=== PATIENT | male | born 1975 | race African-American/Black ===

== ENCOUNTER 2022-09-21 18:02 | Inpatient (IN) | payer SELFPAY ==
[2022-09-21 20:09] LABS: Anion Gap 27 mmol/L (10-20); BUN (Urea Nitrogen) 42 mg/dL (8.9-20.6); Calc. Creatinine Clearance 0 mL/min (70-130); Calcium 9.9 mg/dL (7.8-10.44); Carbon Dioxide 16 mmol/L (22-29); Chloride 100 mmol/L (98-107); Estimated GFR 9; Glucose 153 mg/dL (70-105); Potassium 4.5 mmol/L (3.5-5.1); Sodium 138 mmol/L (136-145)
[2022-09-21 21:12] LABS: Actual Bicarbonate (HCO3v) 22.3 mEq/L (22-28); Base Excess -4.4 mEq/L (-2 - +2); Calcium, Ionized (venous) 1.09 mmol/L (1.16-1.32); Chloride (VBG) 101 mmol/L (98-106); Hematocrit-VBG 44 % (42.0-52.0); Hemoglobin (Hb) 15.1 g/dL (13.1-17.2); Puncture Site Other Site; RapidComm Collect By CBL; Sodium 138.3 mmol/L (133-146); pH (venous) 7.293 (7.32-7.43)
[2022-09-21 21:39] LABS: Lactic Acid 5.3 mmol/L (0.5-2.2)
[2022-09-21] MEDS ORDERED: levETIRAcetam in NS 1,000 MG in Premix Bag 1 BAG IVPB SCH (22:41)
[2022-09-21] MEDS ORDERED: Ampicillin/Sulbactam 3 GM in Sodium Chloride 0.9% 100 ML IVPB SCH (23:00)
[2022-09-21 23:06] LABS: Magnesium 2.4 mg/dL (1.6-2.6); Phosphorus 4.9 mg/dL (2.3-4.7)
[2022-09-21 23:16] LABS: CK (CPK) 4389 U/L (30-200)
[2022-09-21] MEDS ORDERED: Sodium Chloride 0.9% 1,000 ML IV SCH (23:30)
[2022-09-21 23:33] VITALS: BMI 27.5
[2022-09-21] MEDS: Nicotine 14 MG PATCH TD SCH (23:52)
[2022-09-21] MEDS: levETIRAcetam 500 MG/5 ML VIAL SLOW IVP SCH (23:52)
[2022-09-22 01:06] LABS: Creatinine, Urine 259.42 mg/dL (63-166)
[2022-09-22] MEDS ORDERED: Baclofen 10 MG TAB PO SCH (01:15)
[2022-09-22] MEDS ORDERED: Sodium Chloride 0.9% 1,000 ML IV SCH (01:30)
[2022-09-22] MEDS: Sodium Chloride 0.9% 1,000 ML IV SCH ×2 (01:56→01:57)
[2022-09-22] MEDS ORDERED: Aspirin 325 mg Enteric Coated Tablet PO SCH (02:45)
[2022-09-22 02:50] LABS: Bilirubin Neg (Negative); Blood, Urine 250 (Negative); Clarity Slightly Cloudy (Clear); Glucose, Urine (Dipstick) Normal (Negative); Ketone, Urine Negative (Negative); Leukocyte Negative (Negative); Nitrite Negative (Negative); Protein, Urine (Dipstick) 30 mg/dl (Neg-Trace); Specific Gravity, Urine 1.025 (1.005-1.030); Urobilinogen Normal mg/dL (Less than 2)
[2022-09-22 02:57] LABS: Amphetamine Not Detected (NotDetected); Barbiturates Screen Not Detected (NotDetected); Benzodiazepine Screen Detected (NotDetected); Cocaine Metabolite Screen Not Detected (NotDetected); Methadone Not Detected (NotDetected); Methamphetamine Not Detected (NotDetected); Opiate Screen Not Detected (NotDetected); Oxycodone Screen Not Detected (NotDetected); Phencyclidine (PCP) Not Detected (NotDetected); THC/Cannabinoid Screen Detected (NotDetected); Tricyclic Screen Not Detected (NotDetected)
[2022-09-22 03:00] LABS: Bacteria/HPF Rare-Few HPF (None Seen); CAUTI Indications for Culture Alt mental st,lethar; Squamous Epithelial None Seen HPF (0-3); WBC/HPF 0-3 HPF (0-3)
[2022-09-22] MEDS ORDERED: Cefepime 1 GM in Sodium Chloride 0.9% 100 ML IVPB SCH (03:00)
[2022-09-22 03:01] LABS: Urine Culture Reflex No No
[2022-09-22 03:10] LABS: %Basophils 0.2 % (0.0-2.0); %Eosinophils 0.1 % (0.0-6.0); %Lymphocytes 16.1 % (18.0-47.0); %Monocytes 10.1 % (0.0-10.0); %Neutrophils 73.3 % (40.0-75.0); Hematocrit 36.9 % (38.8-50.0); Mean Corpuscular HGB CONC 35.2 g/dL (32.0-36.0); Mean Corpuscular Hemoglobin 29.2 pg (27.0-33.0); Mean Corpuscular Volume 82.9 fl (81.2-95.1); Mean Platelet Volume 10.9 fl (7.4-10.4); Platelet Count 198 10x3/uL (150-450); RBC Distribution Width 13.5 % (11.5-14.5); Red Blood Cell (RBC) Count 4.45 10x6/uL (4.32-5.72); White Blood Cell (WBC) Count 9.5 10x3/uL (3.5-10.5)
[2022-09-22 03:25] LABS: Phosphorus 4.9 mg/dL (2.3-4.7)
[2022-09-22] MEDS ORDERED: traMADol HCl 50 MG TAB PO SCH (03:45)
[2022-09-22 03:52] LABS: ALT (SGPT) 40 U/L (8-55); AST (SGOT) 140 U/L (5-34); Albumin 3.7 g/dL (3.5-5.0); Alkaline Phosphatase 63 U/L (40-110); Anion Gap 18 mmol/L (10-20); BUN (Urea Nitrogen) 39 mg/dL (8.9-20.6); Bilirubin, Total 0.4 mg/dL (0.2-1.2); Calc. Creatinine Clearance 20 mL/min (70-130); Calcium 8.2 mg/dL (7.8-10.44); Carbon Dioxide 19 mmol/L (22-29); Chloride 105 mmol/L (98-107); Estimated GFR 13; Globulin 2.5 g/dL (2.4-3.5); Glucose 130 mg/dL (70-105); Potassium 3.7 mmol/L (3.5-5.1); Protein, Total 6.2 g/dL (6.0-8.3); Sodium 138 mmol/L (136-145)
[2022-09-22 03:59] LABS: CK (CPK) 8845 U/L (30-200)
[2022-09-22] MEDS ORDERED: Gabapentin 100 MG CAP PO SCH (04:00)
[2022-09-22] MEDS ORDERED: Lactated Ringer's 1,000 ML IV SCH (04:30)
[2022-09-22] MEDS: Lactated Ringer's 1,000 ML IV SCH ×4 (05:46→20:53)
[2022-09-22] MEDS ORDERED: metroNIDAZOLE 500 MG in Premix Bag 1 BAG IVPB SCH (06:00)
[2022-09-22] MEDS: Pantoprazole 40 MG VIAL IVP SCH (09:31)
[2022-09-22] MEDS: Ondansetron PF 4 MG/2 ML Vial IVP PRN ×2 (09:34→18:33)
[2022-09-22] MEDS: Heparin 5,000 UNITS/ML VIAL SC SCH ×3 (09:35→20:48)
[2022-09-22] MEDS ORDERED: Amlodipine 5 MG TAB PO SCH (11:30)
[2022-09-22] MEDS ORDERED: hydrALAZINE 20 MG/ML VIAL SLOW IVP PRN (11:35)
[2022-09-22] MEDS ORDERED: Carvedilol 6.25 MG TAB PO SCH (11:45)
[2022-09-22] MEDS: levETIRAcetam 500 MG/5 ML VIAL SLOW IVP SCH (12:25)
[2022-09-22] MEDS: Carvedilol 6.25 MG TAB PO SCH (16:51)
[2022-09-22 18:58] LABS: Anion Gap 14 mmol/L (10-20); BUN (Urea Nitrogen) 23 mg/dL (8.9-20.6); Calc. Creatinine Clearance 43 mL/min (70-130); Calcium 8.8 mg/dL (7.8-10.44); Carbon Dioxide 24 mmol/L (22-29); Chloride 107 mmol/L (98-107); Estimated GFR 32; Glucose 109 mg/dL (70-105); Potassium 4.1 mmol/L (3.5-5.1); Sodium 141 mmol/L (136-145)
[2022-09-22] MEDS: levETIRAcetam 500 MG TAB PO SCH (20:48)
[2022-09-22] MEDS ORDERED: Atorvastatin Calcium 40 MG TAB PO SCH (21:00)
[2022-09-22] MEDS: Nicotine 14 MG PATCH TD SCH (23:10)
[2022-09-23] MEDS: Acetaminophen 500 MG TAB PO PRN ×3 (00:22→23:49)
[2022-09-23] MEDS: Lactated Ringer's 1,000 ML IV SCH ×8 (00:28→21:09)
[2022-09-23] MEDS ORDERED: traMADol HCl 50 MG TAB PO PRN (00:49)
[2022-09-23] MEDS ORDERED: traMADol HCl 50 MG TAB PO SCH ×2 (01:00→23:45)
[2022-09-23] MEDS ORDERED: Gabapentin 100 MG CAP PO SCH (04:15)
[2022-09-23 04:27] LABS: #Monocytes 0.7 10x3/uL (0.0-1.1); #Neutrophils 4.7 10x3/uL (1.5-8.4); %Basophils 0.5 % (0.0-2.0); %Eosinophils 0.3 % (0.0-6.0); %Lymphocytes 18.1 % (18.0-47.0); %Monocytes 10.5 % (0.0-10.0); %Neutrophils 70.4 % (40.0-75.0); Hematocrit 35.7 % (38.8-50.0); Hemoglobin 12.3 g/dL (13.5-17.5); Mean Corpuscular HGB CONC 34.5 g/dL (32.0-36.0); Mean Corpuscular Hemoglobin 28.4 pg (27.0-33.0); Mean Corpuscular Volume 82.4 fl (81.2-95.1); Mean Platelet Volume 11.5 fl (7.4-10.4); Platelet Count 190 10x3/uL (150-450); RBC Distribution Width 13.3 % (11.5-14.5); Red Blood Cell (RBC) Count 4.33 10x6/uL (4.32-5.72); White Blood Cell (WBC) Count 6.6 10x3/uL (3.5-10.5)
[2022-09-23 04:41] LABS: Anion Gap 14 mmol/L (10-20); BUN (Urea Nitrogen) 16 mg/dL (8.9-20.6); Calc. Creatinine Clearance 60 mL/min (70-130); Calcium 8.8 mg/dL (7.8-10.44); Carbon Dioxide 25 mmol/L (22-29); Chloride 103 mmol/L (98-107); Estimated GFR 47; Glucose 98 mg/dL (70-105); Sodium 138 mmol/L (136-145)
[2022-09-23 05:10] LABS: CK (CPK) 18077 U/L (30-200)
[2022-09-23] MEDS ORDERED: Amlodipine 5 MG TAB PO SCH (09:00)
[2022-09-23] MEDS: Aspirin 81 mg Enteric Coated Tablet PO SCH (09:08)
[2022-09-23] MEDS: Carvedilol 6.25 MG TAB PO SCH ×2 (09:08→18:39)
[2022-09-23] MEDS: Gabapentin 100 MG CAP PO SCH (09:09)
[2022-09-23] MEDS: Heparin 5,000 UNITS/ML VIAL SC SCH ×3 (09:09→20:24)
[2022-09-23] MEDS: Pantoprazole 40 MG VIAL IVP SCH (09:09)
[2022-09-23] MEDS: levETIRAcetam 500 MG TAB PO SCH ×2 (09:09→20:24)
[2022-09-23] MEDS: Ondansetron PF 4 MG/2 ML Vial IVP PRN (15:05)
[2022-09-23] MEDS ORDERED: Baclofen 10 MG TAB PO SCH (23:45)
[2022-09-23] MEDS: Nicotine 14 MG PATCH TD SCH (23:46)
[2022-09-24] MEDS ORDERED: hydrALAZINE 20 MG/ML VIAL SLOW IVP SCH ×2 (00:15→01:15)
[2022-09-24] MEDS: Lactated Ringer's 1,000 ML IV SCH ×8 (00:36→23:11)
[2022-09-24] MEDS ORDERED: traMADol HCl 50 MG TAB PO SCH ×2 (01:15)
[2022-09-24] MEDS: Acetaminophen 500 MG TAB PO PRN ×2 (03:54→18:23)
[2022-09-24 04:42] LABS: Anion Gap 15 mmol/L (10-20); BUN (Urea Nitrogen) 10 mg/dL (8.9-20.6); Calc. Creatinine Clearance 86 mL/min (70-130); Calcium 9.4 mg/dL (7.8-10.44); Carbon Dioxide 24 mmol/L (22-29); Chloride 103 mmol/L (98-107); Estimated GFR 73; Glucose 96 mg/dL (70-105); Potassium 4.1 mmol/L (3.5-5.1); Sodium 138 mmol/L (136-145)
[2022-09-24 04:43] LABS: #Eosinphils 0.1 10x3/uL (0.0-0.5); #Monocytes 0.7 10x3/uL (0.0-1.1); #Neutrophils 5.6 10x3/uL (1.5-8.4); %Basophils 0.4 % (0.0-2.0); %Eosinophils 0.7 % (0.0-6.0); %Lymphocytes 21.4 % (18.0-47.0); %Monocytes 8.8 % (0.0-10.0); %Neutrophils 68.6 % (40.0-75.0); Hematocrit 38.6 % (38.8-50.0); Hemoglobin 13.4 g/dL (13.5-17.5); Mean Corpuscular HGB CONC 34.7 g/dL (32.0-36.0); Mean Corpuscular Hemoglobin 28.7 pg (27.0-33.0); Mean Corpuscular Volume 82.7 fl (81.2-95.1); Platelet Count 185 10x3/uL (150-450); RBC Distribution Width 13.2 % (11.5-14.5); Red Blood Cell (RBC) Count 4.67 10x6/uL (4.32-5.72); White Blood Cell (WBC) Count 8.2 10x3/uL (3.5-10.5)
[2022-09-24 05:15] LABS: CK (CPK) 15558 U/L (30-200)
[2022-09-24] MEDS: Gabapentin 100 MG CAP PO SCH (09:08)
[2022-09-24] MEDS: Aspirin 81 mg Enteric Coated Tablet PO SCH (09:08)
[2022-09-24] MEDS: levETIRAcetam 500 MG TAB PO SCH ×2 (09:10→20:46)
[2022-09-24] MEDS: Carvedilol 6.25 MG TAB PO SCH ×2 (09:10→17:13)
[2022-09-24] MEDS: Amlodipine 10 MG TAB PO SCH (09:10)
[2022-09-24] MEDS: Heparin 5,000 UNITS/ML VIAL SC SCH ×3 (09:11→20:46)
[2022-09-24 12:01] LABS: Lactic Acid 1.1 mmol/L (0.5-2.2)
[2022-09-24] MEDS ORDERED: Baclofen 10 MG TAB PO SCH (21:30)
[2022-09-24] MEDS: Nicotine 14 MG PATCH TD SCH (23:11)
[2022-09-25] MEDS ORDERED: traMADol HCl 50 MG TAB PO SCH (01:00)
[2022-09-25] MEDS: Lactated Ringer's 1,000 ML IV SCH ×7 (02:23→21:11)
[2022-09-25] MEDS: Acetaminophen 500 MG TAB PO PRN ×2 (03:43→08:53)
[2022-09-25 04:17] LABS: Anion Gap 15 mmol/L (10-20); BUN (Urea Nitrogen) 9 mg/dL (8.9-20.6); Calc. Creatinine Clearance 84 mL/min (70-130); Calcium 9.5 mg/dL (7.8-10.44); Carbon Dioxide 24 mmol/L (22-29); Chloride 104 mmol/L (98-107); Estimated GFR 71; Glucose 104 mg/dL (70-105); Potassium 4.3 mmol/L (3.5-5.1); Sodium 139 mmol/L (136-145)
[2022-09-25 04:21] LABS: #Eosinphils 0.1 10x3/uL (0.0-0.5); #Monocytes 0.6 10x3/uL (0.0-1.1); #Neutrophils 4.9 10x3/uL (1.5-8.4); %Basophils 0.4 % (0.0-2.0); %Lymphocytes 21.2 % (18.0-47.0); %Monocytes 8.2 % (0.0-10.0); %Neutrophils 69.1 % (40.0-75.0); Hematocrit 36.7 % (38.8-50.0); Hemoglobin 12.5 g/dL (13.5-17.5); Mean Corpuscular HGB CONC 34.1 g/dL (32.0-36.0); Mean Corpuscular Hemoglobin 28.7 pg (27.0-33.0); Mean Corpuscular Volume 84.2 fl (81.2-95.1); Platelet Count 161 10x3/uL (150-450); Red Blood Cell (RBC) Count 4.36 10x6/uL (4.32-5.72); White Blood Cell (WBC) Count 7.1 10x3/uL (3.5-10.5)
[2022-09-25 04:41] LABS: CK (CPK) 11535 U/L (30-200)
[2022-09-25] MEDS: Gabapentin 100 MG CAP PO SCH (08:33)
[2022-09-25] MEDS: Amlodipine 10 MG TAB PO SCH (08:33)
[2022-09-25] MEDS: Heparin 5,000 UNITS/ML VIAL SC SCH ×3 (08:33→21:11)
[2022-09-25] MEDS: Aspirin 81 mg Enteric Coated Tablet PO SCH (08:35)
[2022-09-25] MEDS: levETIRAcetam 500 MG TAB PO SCH ×2 (08:35→21:11)
[2022-09-25] MEDS: Carvedilol 6.25 MG TAB PO SCH (08:44)
[2022-09-25] MEDS ORDERED: HYDROmorphone 0.5 MG/0.5 ML SYRINGE SLOW IVP PRN (08:49)
[2022-09-25] MEDS ORDERED: HYDROmorphone 0.5 MG/0.5 ML SYRINGE SLOW IVP SCH (12:45)
[2022-09-25] MEDS: HYDROcodone/Acetaminophen 5/325 mg Tablet PO PRN (16:50)
[2022-09-25] MEDS: Carvedilol 12.5 MG TAB PO SCH (16:59)
[2022-09-25] MEDS: Baclofen 10 MG TAB PO SCH (21:11)
[2022-09-26] MEDS: HYDROcodone/Acetaminophen 5/325 mg Tablet PO PRN ×4 (00:16→16:44)
[2022-09-26] MEDS: Lactated Ringer's 1,000 ML IV SCH ×8 (00:16→20:30)
[2022-09-26] MEDS: Nicotine 14 MG PATCH TD SCH (00:16)
[2022-09-26 04:14] LABS: Anion Gap 15 mmol/L (10-20); BUN (Urea Nitrogen) 8 mg/dL (8.9-20.6); Calc. Creatinine Clearance 99 mL/min (70-130); Calcium 9.7 mg/dL (7.8-10.44); Carbon Dioxide 26 mmol/L (22-29); Chloride 103 mmol/L (98-107); Estimated GFR 86; Glucose 95 mg/dL (70-105); Potassium 4.1 mmol/L (3.5-5.1); Sodium 140 mmol/L (136-145)
[2022-09-26 04:24] LABS: CK (CPK) 7784 U/L (30-200)
[2022-09-26 04:26] LABS: #Basophils 0.1 10x3/uL (0.0-0.2); #Eosinphils 0.1 10x3/uL (0.0-0.5); #Monocytes 0.5 10x3/uL (0.0-1.1); #Neutrophils 4.5 10x3/uL (1.5-8.4); %Basophils 0.8 % (0.0-2.0); %Eosinophils 1.4 % (0.0-6.0); %Monocytes 7.5 % (0.0-10.0); %Neutrophils 68.1 % (40.0-75.0); Mean Corpuscular HGB CONC 34.3 g/dL (32.0-36.0); Mean Corpuscular Hemoglobin 28.6 pg (27.0-33.0); Mean Corpuscular Volume 83.5 fl (81.2-95.1); Platelet Count 167 10x3/uL (150-450); Red Blood Cell (RBC) Count 4.19 10x6/uL (4.32-5.72); White Blood Cell (WBC) Count 6.6 10x3/uL (3.5-10.5)
[2022-09-26] MEDS: Heparin 5,000 UNITS/ML VIAL SC SCH ×3 (10:22→20:30)
[2022-09-26] MEDS: Amlodipine 10 MG TAB PO SCH (10:38)
[2022-09-26] MEDS: levETIRAcetam 500 MG TAB PO SCH ×2 (10:38→20:30)
[2022-09-26] MEDS: Gabapentin 100 MG CAP PO SCH (10:38)
[2022-09-26] MEDS: Carvedilol 12.5 MG TAB PO SCH ×2 (10:39→16:45)
[2022-09-26] MEDS: Aspirin 81 mg Enteric Coated Tablet PO SCH (10:39)
[2022-09-26] MEDS: Baclofen 10 MG TAB PO SCH (20:30)
[2022-09-27] MEDS: Lactated Ringer's 1,000 ML IV SCH ×7 (00:12→21:37)
[2022-09-27] MEDS: Nicotine 14 MG PATCH TD SCH ×2 (00:12→23:12)
[2022-09-27] MEDS: HYDROcodone/Acetaminophen 5/325 mg Tablet PO PRN ×3 (00:23→16:35)
[2022-09-27 04:05] LABS: #Eosinphils 0.1 10x3/uL (0.0-0.5); #Monocytes 0.4 10x3/uL (0.0-1.1); #Neutrophils 4.1 10x3/uL (1.5-8.4); %Basophils 0.7 % (0.0-2.0); %Eosinophils 2.4 % (0.0-6.0); %Monocytes 7.4 % (0.0-10.0); %Neutrophils 68.2 % (40.0-75.0); Hematocrit 34.5 % (38.8-50.0); Hemoglobin 11.8 g/dL (13.5-17.5); Mean Corpuscular HGB CONC 34.2 g/dL (32.0-36.0); Mean Corpuscular Hemoglobin 28.8 pg (27.0-33.0); Mean Corpuscular Volume 84.1 fl (81.2-95.1); Mean Platelet Volume 11.5 fl (7.4-10.4); Platelet Count 194 10x3/uL (150-450); White Blood Cell (WBC) Count 5.9 10x3/uL (3.5-10.5)
[2022-09-27 04:20] LABS: Anion Gap 15 mmol/L (10-20); BUN (Urea Nitrogen) 10 mg/dL (8.9-20.6); Calc. Creatinine Clearance 101 mL/min (70-130); Calcium 9.3 mg/dL (7.8-10.44); Carbon Dioxide 25 mmol/L (22-29); Chloride 102 mmol/L (98-107); Estimated GFR 88; Glucose 88 mg/dL (70-105); Potassium 4.1 mmol/L (3.5-5.1); Sodium 138 mmol/L (136-145)
[2022-09-27 04:31] LABS: CK (CPK) 5266 U/L (30-200)
[2022-09-27] MEDS: Heparin 5,000 UNITS/ML VIAL SC SCH ×3 (08:44→21:28)
[2022-09-27] MEDS: Gabapentin 100 MG CAP PO SCH ×2 (08:44→21:27)
[2022-09-27] MEDS: levETIRAcetam 500 MG TAB PO SCH ×2 (08:48→21:27)
[2022-09-27] MEDS: Aspirin 81 mg Enteric Coated Tablet PO SCH (08:49)
[2022-09-27] MEDS: Amlodipine 10 MG TAB PO SCH (08:49)
[2022-09-27] MEDS: Carvedilol 12.5 MG TAB PO SCH (08:49)
[2022-09-27] MEDS ORDERED: Electrolyte Replacement Protocol 1 EACH FS SCH (10:30)
[2022-09-27] MEDS: Carvedilol 6.25 MG TAB PO SCH (17:31)
[2022-09-27] MEDS ORDERED: Amlodipine 5 MG TAB PO SCH (21:00)
[2022-09-27] MEDS: Senokot S 8.6-50 MG TAB PO SCH (21:26)
[2022-09-27] MEDS: Cholecalciferol 1,000 UNITS (25 MCG) TAB PO SCH (21:27)
[2022-09-27] MEDS: Cyanocobalamin (Vitamin B-12) 1,000 MCG TAB PO SCH (21:27)
[2022-09-27] MEDS: Multivit, Therapeutic 1 TAB PO SCH (21:28)
[2022-09-27] MEDS: Folic Acid 1 MG TAB PO SCH (21:28)
[2022-09-27] MEDS: Thiamine 100 MG TAB PO SCH (21:28)
[2022-09-27] MEDS ORDERED: Lactated Ringer's 1,000 ML ONE (21:38)
[2022-09-28] MEDS: Lactated Ringer's 1,000 ML IV SCH ×7 (01:22→20:32)
[2022-09-28 04:04] LABS: Anion Gap 14 mmol/L (10-20); BUN (Urea Nitrogen) 10 mg/dL (8.9-20.6); Calc. Creatinine Clearance 98 mL/min (70-130); Calcium 9.5 mg/dL (7.8-10.44); Carbon Dioxide 28 mmol/L (22-29); Chloride 102 mmol/L (98-107); Estimated GFR 85; Glucose 76 mg/dL (70-105); Magnesium 1.7 mg/dL (1.6-2.6); Sodium 140 mmol/L (136-145)
[2022-09-28 04:05] LABS: CK (CPK) 2997 U/L (30-200); Phosphorus 3.8 mg/dL (2.3-4.7)
[2022-09-28] MEDS ORDERED: Magnesium 2 GM/50 ML(in water) 2 GM in Premix Bag 1 BAG IVPB SCH (08:00)
[2022-09-28] MEDS: Heparin 5,000 UNITS/ML VIAL SC SCH ×3 (08:32→20:35)
[2022-09-28] MEDS: Gabapentin 100 MG CAP PO SCH ×2 (08:33→20:34)
[2022-09-28] MEDS: levETIRAcetam 500 MG TAB PO SCH ×2 (08:33→20:35)
[2022-09-28] MEDS: Senokot S 8.6-50 MG TAB PO SCH ×2 (08:33→20:45)
[2022-09-28] MEDS: Carvedilol 6.25 MG TAB PO SCH ×2 (08:33→16:35)
[2022-09-28] MEDS: Aspirin 81 mg Enteric Coated Tablet PO SCH (08:33)
[2022-09-28] MEDS: Amlodipine 10 MG TAB PO SCH (08:34)
[2022-09-28] MEDS: Folic Acid 1 MG TAB PO SCH (20:35)
[2022-09-28] MEDS: Cyanocobalamin (Vitamin B-12) 1,000 MCG TAB PO SCH (20:35)
[2022-09-28] MEDS: Cholecalciferol 1,000 UNITS (25 MCG) TAB PO SCH (20:35)
[2022-09-28] MEDS: Thiamine 100 MG TAB PO SCH (20:35)
[2022-09-28] MEDS: Multivit, Therapeutic 1 TAB PO SCH (20:35)
[2022-09-28] MEDS: Nicotine 14 MG PATCH TD SCH (23:06)
[2022-09-29] MEDS: Lactated Ringer's 1,000 ML IV SCH ×3 (00:32→11:08)
[2022-09-29 04:44] LABS: #Basophils 0.1 10x3/uL (0.0-0.2); #Eosinphils 0.1 10x3/uL (0.0-0.5); #Monocytes 0.5 10x3/uL (0.0-1.1); #Neutrophils 3.9 10x3/uL (1.5-8.4); %Basophils 0.9 % (0.0-2.0); %Eosinophils 2.1 % (0.0-6.0); %Lymphocytes 19.9 % (18.0-47.0); %Monocytes 8.5 % (0.0-10.0); %Neutrophils 68.2 % (40.0-75.0); Hematocrit 34.2 % (38.8-50.0); Hemoglobin 11.7 g/dL (13.5-17.5); Mean Corpuscular HGB CONC 34.2 g/dL (32.0-36.0); Mean Corpuscular Hemoglobin 28.8 pg (27.0-33.0); Mean Corpuscular Volume 84.2 fl (81.2-95.1); Mean Platelet Volume 10.4 fl (7.4-10.4); Platelet Count 200 10x3/uL (150-450); RBC Distribution Width 13.1 % (11.5-14.5); Red Blood Cell (RBC) Count 4.06 10x6/uL (4.32-5.72); White Blood Cell (WBC) Count 5.7 10x3/uL (3.5-10.5)
[2022-09-29 05:16] LABS: Anion Gap 14 mmol/L (10-20); BUN (Urea Nitrogen) 10 mg/dL (8.9-20.6); CK (CPK) 1599 U/L (30-200); Calc. Creatinine Clearance 108 mL/min (70-130); Calcium 9.3 mg/dL (7.8-10.44); Carbon Dioxide 27 mmol/L (22-29); Chloride 105 mmol/L (98-107); Estimated GFR 96; Glucose 95 mg/dL (70-105); Potassium 4.7 mmol/L (3.5-5.1); Sodium 141 mmol/L (136-145)
[2022-09-29] MEDS ORDERED: Amlodipine 5 MG TAB PO SCH (09:00)
[2022-09-29] MEDS: Gabapentin 100 MG CAP PO SCH ×2 (10:00→20:18)
[2022-09-29] MEDS: levETIRAcetam 500 MG TAB PO SCH ×2 (10:00→20:18)
[2022-09-29] MEDS: Carvedilol 6.25 MG TAB PO SCH ×2 (10:01→19:24)
[2022-09-29] MEDS: Senokot S 8.6-50 MG TAB PO SCH ×2 (10:01→20:24)
[2022-09-29] MEDS: Heparin 5,000 UNITS/ML VIAL SC SCH ×3 (10:01→20:27)
[2022-09-29] MEDS: Aspirin 81 mg Enteric Coated Tablet PO SCH (10:01)
[2022-09-29] MEDS: HYDROcodone/Acetaminophen 5/325 mg Tablet PO PRN ×2 (14:51→20:17)
[2022-09-29] MEDS: Cholecalciferol 1,000 UNITS (25 MCG) TAB PO SCH (20:19)
[2022-09-29] MEDS: Folic Acid 1 MG TAB PO SCH (20:19)
[2022-09-29] MEDS: Cyanocobalamin (Vitamin B-12) 1,000 MCG TAB PO SCH (20:19)
[2022-09-29] MEDS: Thiamine 100 MG TAB PO SCH (20:19)
[2022-09-29] MEDS: Multivit, Therapeutic 1 TAB PO SCH (20:19)
[2022-09-30] MEDS: Nicotine 14 MG PATCH TD SCH (00:38)
[2022-09-30] MEDS: levETIRAcetam 500 MG TAB PO SCH (12:59)
[2022-09-30] MEDS: Aspirin 81 mg Enteric Coated Tablet PO SCH (12:59)
[2022-09-30] MEDS: Gabapentin 100 MG CAP PO SCH (12:59)
[2022-09-30] MEDS: Senokot S 8.6-50 MG TAB PO SCH (13:00)
[2022-09-30] MEDS: Carvedilol 6.25 MG TAB PO SCH ×2 (13:00→18:20)
[2022-09-30] MEDS: Heparin 5,000 UNITS/ML VIAL SC SCH ×2 (13:00→15:00)
[2022-09-30 17:56] VITALS: TEMP 99.2
[2022-09-30 18:21] VITALS: BP 153/76
== END 2022-09-30 18:22 | disposition home or self-care (01) | DRG 101 ==
LOC: CSHERS 18:02 → CSHTELE 22:56 → OBSVTOIN 22:57
PROVIDERS: ADMIT Internal Medicine; ATTEND Internal Medicine
DX: G40.909 Epilepsy, unspecified, not intractable, without status epilepticus (principal); N17.9 Acute kidney failure, unspecified; E87.20 Acidosis, unspecified; M62.82 Rhabdomyolysis; E86.0 Dehydration; F17.210 Nicotine dependence, cigarettes, uncomplicated; E87.5 Hyperkalemia; E83.52 Hypercalcemia; N18.2 Chronic kidney disease, stage 2 (mild); D63.1 Anemia in chronic kidney disease; I12.9 Hypertensive chronic kidney disease with stage 1 through stage 4 chronic kidney disease, or unspecified chronic kidney disease; G57.91 Unspecified mononeuropathy of right lower limb; Z88.0 Allergy status to penicillin
CPT/HCPCS: 36415; 36416; 70450; 70551; 74176; 76999; 80048; 80053; 80177; 80306; 81001; 82550; 82570; 82805; 83605; 83735; 83880; 84100; 84145; 84146; 84300; 84550; 85025; 87086; 93306; C9113; J0360; J0692; J1170; J1644; J1953; J2405; J3475; J3490; J7050; J7120